=== PATIENT | male | born 1940 | race Hispanic/Latino ===

== ENCOUNTER 2017-11-27 07:58 | Outpatient (CLI) | payer MEDICARE, BC ==
--- NOTE | 2017-11-27 11:15 | ULT ---
HEPATIC ULTRASOUND WITH DUPLEX EVALUATION: INDICATIONS: Elevated LFTs with history of cholecystectomy. TECHNIQUE: Broderick-scale and color spectral Doppler images were obtained of the right upper quadrant and spleen. S pectral Doppler evaluation was performed of the hepatic vasculature. FINDINGS: There is appropriate hepatopetal flow seen within the hepatic vasculature, as well as appropriate jaxon w within the hepatic veins and splenic artery. There is coarse echotexture of the liver, likely related to underlying chronic liver disease. The li iram is mildly enlarged, measuring 17.7 cm. The spleen is normal in size, measuring 9.4 cm. The comm on bile measures 7.1 mm. There is a mild amount of fluid surrounding the right hepatic lobe. IMPRESSION: 1. Appropriate hepatopetal flow. 2. Coarse echotexture of the liver with hepatomegaly, suspicious for underlying chronic liver diseas e. 3. Small amount of fluid adjacent to the right hepatic lobe. POS: JEFFREY
== END 2017-11-27 07:59 | disposition home or self-care (01) ==
LOC: SCSULT 07:58
PROVIDERS: ATTEND Internal Medicine Gastroenterology
DX: R94.5 Abnormal results of liver function studies (principal); R16.0 Hepatomegaly, not elsewhere classified; K76.89 Other specified diseases of liver
CPT/HCPCS: 76705

== ENCOUNTER 2018-02-20 07:35 | Day surgery (SDC) | payer BC, MEDICARE ==
[2018-02-20 07:50] LABS: #Basophils 0.1 thou/uL (0.0-0.2); #Eosinphils 0.9 thou/uL (0.0-0.7); #Lymphocytes 2.4 thou/uL (1.20-3.40); #Monocytes 0.6 thou/uL (0.11-0.59); #Neutrophils 4.1 thou/uL (1.40-6.50); %Basophils 1.1 % (0.0-1.0); %Eosinophils 10.8 % (0.0-10.0); %Lymphocytes 30.3 % (21.0-51.0); %Monocytes 6.9 % (0.0-10.0); %Neutrophils 50.9 % (42.0-75.0); Hemoglobin 13.6 g/dL (14.0-18.0); Mean Corpuscular HGB CONC 33.3 g/dL (32.0-36.0); Mean Corpuscular Hemoglobin 32.9 pg (27.0-31.0); Mean Corpuscular Volume 98.5 fL (78.0-98.0); Mean Platelet Volume 8.4 fL (7.4-10.4); Platelet Count 161 thou/uL (130-400); RBC Distribution Width 12.3 % (11.5-14.5); Red Blood Cell (RBC) Count 4.13 mill/uL (4.70-6.10)
[2018-02-20 07:56] LABS: Prothrombin Time 13.4 SEC (12.0-14.7)
[2018-02-20 08:38] VITALS: BP 136/68; TEMP 98.7
[2018-02-20] MEDS ORDERED: Sodium Bicarbonate 2.5 MEQ/5 ML VIAL ONE (08:51)
[2018-02-20] MEDS ORDERED: Fentanyl 100 MCG/2 ML VIAL ONE (08:51)
--- NOTE | 2018-02-20 10:11 | ULT ---
SONOGRAPHIC GUIDED HEPATIC BIOPSY: History: Abnormal liver function tests. FINDINGS: After explaining the procedure and answering all questions, sonographic survey was performed. Sterile technique, buffered local anesthesia, sonographic guidance and a subxyphoid approach were used to ca refully advance the tip of a 17 gauge trocar needle into the medial segment left liver lobe. Position was confirmed with sonography. A total of two 18 gauge core biopsy specimens were obtained and submi tted to pathology for evaluation. Post procedure imaging shows no evidence of complication. Patient t olerated the procedure well and was returned to the holding area in good condition for further monito ring. IMPRESSION: Technically successful sonographic guided random hepatic biopsy. Pathology is pending. POS: JEFFREY
== END 2018-02-20 10:15 | disposition home or self-care (01) ==
LOC: ULT 07:35
PROVIDERS: ATTEND Internal Medicine Gastroenterology
PROC: 0FB23ZX Excision of Left Lobe Liver, Percutaneous Approach, Diagnostic (ICD-10-PCS; principal; 2018-02-20)
DX: R94.5 Abnormal results of liver function studies (principal); Z86.010 Personal history of colon polyps
CPT/HCPCS: 36415; 47000; 76942; 85025; 85610; 85730; 88307; 88313; 88321; J3010